=== PATIENT | male | born 1975 | race Two or more races ===

== ENCOUNTER 2018-10-25 10:41 | Emergency (ER) | payer OTHER | END 2018-10-25 13:13 | disposition home or self-care (01) | LOC: FTE 10:41 | DX: S80.02XA Contusion of left knee, initial encounter (principal); W01.0XXA Fall on same level from slipping, tripping and stumbling without subsequent striking against object, initial encounter; Y92.9 Unspecified place or not applicable | CPT/HCPCS: 29505; 73562; 99283-25 ==